=== PATIENT | male | born 1965 | race African-American/Black ===

== ENCOUNTER 2016-08-01 10:39 | Emergency (ER) | payer SELFPAY ==
[~2016-08-01] VITALS: Ht 190.5 cm; Wt 110.0 kg
[2016-08-01] MEDS ORDERED: PROC10TA PO (12:07)
[2016-08-01] MEDS ORDERED: HYDR-519 PO (12:07)
[2016-08-01] MEDS ORDERED: CAFERGOT (12:07)
[2016-08-01] MEDS ORDERED: METO-293 PO (12:07)
[2016-08-01] MEDS ORDERED: MORPHINE SULFATE 10 MG/ML CPJ IM ONE ×2 (14:30→15:15)
[2016-08-01 15:15] VITALS: BP 145/96
== END 2016-08-01 15:40 | disposition home or self-care (01) ==
LOC: ER 14:09
DX: G43.909 Migraine, unspecified, not intractable, without status migrainosus (principal); R68.84 Jaw pain; Z88.6 Allergy status to analgesic agent; Z88.8 Allergy status to other drugs, medicaments and biological substances; Z98.890 Other specified postprocedural states
CPT/HCPCS: 96372; 99284; J2270